=== PATIENT | male | born 1960 | race Caucasian/White ===

== ENCOUNTER → 2020-05-21 | Outpatient (CLI) | payer MEDICARE, OTHER ==
[~2020-05-21] VITALS: Ht 175.3 cm; Wt 109.1 kg
[2020-05-21] VITALS (9 sets, daily range): BP systolic 116–137; BP diastolic 60–74
[~2020-05-21] MED LIST: AMARYL2 MG PO; ASPIR 8181 MG PO; B12INJ IM; BRILINTA90 MG PO; COENZYME Q10100 MG PO; COQ-10100 MG PO; FISH OIL 1,001000 M2 PO; GABAPENTIN 100100 MG PO; LOPRESSOR25 PO; MAGOX 400400 MG PO; METFORMIN HCL500 MG PO; OMEGA-3 FISH1200 MG PO; OXYBUTYNIN 5 MG5 M2; PLAVIX 75 MG TA75 M1 PO; PRAVACHOL20 MG PO; VITAMIN D31250 MC1; VITAMIN D3400 UNIT PO
[2020-05-21 09:04] LABS: HEMATOCRIT 38.4 % (42.0-52.0); HEMOGLOBIN 13.3 gm/dL (14.0-18.0); MCH 30.8 pg (26.0-34.0); MCHC 34.8 g/dL (28.0-37.0); MCV 88.5 fL (80.0-100.0); MPV 8.2 fl. (7.2-11.1); RBC 4.34 mil/uL (4.50-6.00); RDW-CV 13.5 % (10.5-14.5); WBC 6.8 thou/uL (4.0-11.0)
[2020-05-21 09:14] LABS: ANION GAP 10 mmol/L (7-16); BUN 17 mg/dL (7-18); CHLORIDE 103 mmol/L (98-107); CO2 25 mmol/L (21-32); CREATININE 0.7 mg/dL (0.6-1.3); GLUCOSE 264 mg/dL (70-99); POTASSIUM 3.8 mmol/L (3.5-5.1); SODIUM 138 mmol/L (136-145)
[2020-05-21 09:16] LABS: APTT 25.7 Seconds (25.0-31.3)
[2020-05-21 09:18] LABS: ALBUMIN 3.2 g/dL (3.4-5.0); ALKALINE PHOSPHATASE 46 U/L (46-116); CHOLESTEROL 156 mg/dL (<200); HDL CHOLESTEROL 31 mg/dL (>40); SGOT 13 U/L (15-37); SGPT 25 U/L (30-65); TOTAL BILIRUBIN 0.3 mg/dL (<0.1-1.0); TOTAL PROTEIN 6.6 g/dL (6.4-8.2); TRIGLYCERIDE 414 mg/dL (<150); VLDL 83 mg/dL (<40)
[2020-05-21 09:20] LABS: LDL CHOLESTEROL ND mg/dL (<100)
[2020-05-21 09:33] LABS: SERUM ASSESSMENT Clear
--- NOTE | 2020-05-21 14:51 | CARD ---
[address] [address] CARDIAC CATH REPORT Name: GABBY REAL Room: [facility] Omkar#: [id number] Admission: 05/21/20 Attend Phys: Star Perez MD, Discharge: Date of : 58 Report #: [id number] THIS REPORT FOR: //name// cc: Eileen Roper Angela Jo RNP ~ APPROVED REPORT Study performed: 05/21/2020 09:03:25 Patient Details Patient Status: Out-Patient Room #: The patient is a 60 year-old male Event Personnel Star Perez Appliance Painter And Refinisher, oDm Justice RN RN, Omar Paulino Kramer, Jessie RTR Monitor Procedures Performed Art Access - R femoral artery Left Heart Cath w/or w/o Coronaries Hemostasis w/ Mynx Indication Positive stress test Risk Factors Obesity, Hypercholesterolemia, Hypertension, Diabetes Previous Procedures/Diagnoses Previous PCI Procedure Narrative The patient was brought electively to the Cardiac Catheterization Laboratory and was prepped and draped in a sterile manner. The right femoral was infiltrated with 2% Lidocaine subcutaneous anesthesia. A [place] 6 FR sheath was inserted into the right femoral artery. Coronary angiography was performed using coronary diagnostic catheters. The right coronary system was accessed and visualized with a Diagnostic 6 Fr 3 DRC catheter. The left coronary system was accessed and visualized with a Diagnostic 6 Fr JL 4 catheter. The left ventricle was accessed and visualized with a Diagnostic 6 Fr Pigtail catheter. Left ventricular/Aortic Valve gradient assessed via catheter pullback. Left ventriculogram was performed in CESPEDES projection. Pre-demployment femoral angiogram was performed . Closure device was deployed with a Fr Mynx 6Fr/7Fr. The patient tolerated the procedure well and there [place] [address] CARDIAC CATH REPORT Name: GABBY REAL Room: [facility]#: [id number] Admission: 05/21/20 Attend Phys: Star Perez MD, Discharge: Date of : 58 Report #: [id number] procedure. There was no hematoma. Intraoperative Conscious Sedation No sedation was given. Case start time was 10:10 and case end time was 10:35. 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 The left ventricular ejection fraction is estimated to be 55-60%. Left ventricular wall motion abnormalities are present. There is no mitral insufficiency. Mild inferobasilar hypokinesis is noted Hemodynamics The aortic pressure is 153/72 mmHg with a mean of 105 mmHg. The left ventricular pressure is 151/6 mmHg with a mean of mmHg. The left ventricular end diastolic pressure is 20 mmHg. There was no gradient across the aortic valve upon pullback. Conclusion 1. Significant multivessel coronary artery disease characterized by the following: A 30% distal left main coronary artery narrowing B 70% tubular proximalmid LAD stenosis with 70% proximal first diagonal narrowing C 50% proximal and distal circumflex narrowing with 50% [place] [address] CARDIAC CATH REPORT Name: GABBY REAL Room: [facility]#: [id number] Admission: 05/21/20 Attend Phys: Star Perez MD, Discharge: Date of : 58 Report #: [id number] D chronic total occlusion of the mid right coronary artery with [id number] collaterals filling the posterior descending branch of the right coronary artery through the septum with faint antegrade filling of the distal right coronary artery via bridging collaterals 2. Low normal global left ventricular systolic function, estimated ejection fraction being 55% with mild inferobasilar hypokinesis 3. Moderate elevation of left ventricular end-diastolic pressure at rest Recommendations Cardiac Risk Reduction Program Aggressive Medical Therapy CABG Diagnostic Cath Approved by: Star Perez MD Date/Time: 05/21/2020 14:48:40 <ELECTRONICALLY SIGNED> By: Star Perez MD, [facility] 05/21/20 145 50 145Star Perez MD, FAC /INF
--- NOTE | 2020-05-21 15:41 | EKG ---
[place] [address] ELECTROCARDIOGRAM REPORT Name: GABBY REAL Room: [facility]#: [id number] Admission: 05/21/20 Attend Phys: Iraida Jaimes Discharge: Date of : 58 Date of Service: 05/21/20 0858 Report #: [id number] THIS REPORT FOR: //name// [facility] Test Date: 2020-05-21 Test Time: 08:58:43 Pat Name: GABBY REAL Department: Room: Gender: Claims Examiner: ORLIN : 1960 Requested By: Star Perez Order Number: [id number] Alba MD: Star Perez Measurements Intervals [place] Rate: 57 P: 32 MI: 195 QRS: -8 QRSD: 102 T: 3 QT: 435 QTc: 424 Interpretive Statements Sinus rhythm Inferior infarct, old possible Compared to ECG 09/04/2017 03:04:28 No significant changes Electronically Signed On 05-21-2020 15:40:57 CDT by Star Perez [email or web address] <ELECTRONICALLY SIGNED> By: Star Perez MD, [facility] 05/21/20 1540 0858 0858 Star Perez MD, [facility] /EPI
--- NOTE | 2020-05-24 12:40 | H ---
[place] [address] HISTORY AND PHYSICAL Name: ALEXSANDRA REALLIE Pauline Room: [facility]#: [id number] Admission: 05/21/20 Attend Phys: Star Perez MD, Discharge: Date of : 58 Report #: [id number] THIS REPORT FOR: //name// cc: Eileen Roper Angela Jo RNP ~ THIS REPORT FOR: //name// CC: Eileen Perez DATE OF SERVICE: 05/21/2020 The patient admitted for cardiac catheterization on 05/21/2020. HISTORY OF PRESENT ILLNESS: The patient is a very pleasant 60-year-old male with a history of coronary artery disease, status post complex PCI of the right coronary artery many years ago and prior CVA. Of late, he has noted dyspnea on exertion, but denies chest discomfort or arm discomfort. There is underlying hypertension, diabetes, hyperlipidemia and weight excess. Confluent cardiac regimen includes aspirin 81 mg b.i.d., Coenzyme Q, cyanocobalamin, gabapentin 200 mg nightly, glimepiride 2 mg b.i.d., magnesium supplement, metformin 1000 mg b.i.d., metoprolol tartrate 25 mg b.i.d., fish oil, pravastatin 20 mg daily and vitamin D3. PAST MEDICAL HISTORY: Remarkable for diabetes, hypertension, hypercholesterolemia, and weight excess. SOCIAL HISTORY: He is . He does not smoke. REVIEW OF SYSTEMS: Remarkable for the following positives. GENERAL: There has been a chronic weight excess. MUSCULOSKELETAL: He notes mild arthritic complaints. NEUROLOGIC: He has symptoms compatible with peripheral neuropathy. Remainder is unremarkable. PHYSICAL EXAMINATION: GENERAL: Reveals a moderately overweight middle-aged male. VITAL SIGNS: Blood pressure is 140/82, pulse rate is 74, respirations are 18 per minute. NECK: Jugular venous pressure is normal. CHEST: Clear. CARDIAC: Reveals normal first and second heart sounds with an S4 gallop. ABDOMEN: Moderately obese. EXTREMITIES: Without edema with intact femoral, pedal [place] [address] HISTORY AND PHYSICAL Name: GABBY REAL Room: [facility]#: [id number] Admission: 05/21/20 Attend Phys: Star Perez MD, Discharge: Date of : 58 Report #: [id number] Recent nuclear stress test revealed inducible inferior ischemia. IMPRESSION: 1. Complex coronary artery disease, status post percutaneous coronary intervention of the right coronary artery. 2. Recently abnormal nuclear stress test. 3. Type 2 diabetes. 4. Prior pontine cerebrovascular accident. 5. Hyperlipidemia. 6. Hypertension. 7. Weight excess. RECOMMENDATIONS: Given the aforementioned confluence of known coronary artery disease, dyspnea on exertion and abnormal nuclear stress test and the risk factor profile, I would recommend proceeding with cardiac catheterization, which is to be undertaken on 05/21/2020. Procedure and risks have been discussed with the patient. <ELECTRONICALLY SIGNED> By: Star Perez MD, FACC 05/24/20 1240 1551 1558Star Perez MD, FACC /nt
== END | disposition home or self-care (01) ==
LOC: M.CL 08:28
PROVIDERS: ATTEND Internal Medicine
DX: R94.39 Abnormal result of other cardiovascular function study (principal); I25.10 Atherosclerotic heart disease of native coronary artery without angina pectoris; I25.82 Chronic total occlusion of coronary artery; I10 Essential (primary) hypertension; E78.00 Pure hypercholesterolemia, unspecified; E11.9 Type 2 diabetes mellitus without complications; G47.30 Sleep apnea, unspecified; E66.09 Other obesity due to excess calories; Z98.890 Other specified postprocedural states; Z79.899 Other long term (current) drug therapy; Z86.73 Personal history of transient ischemic attack (TIA), and cerebral infarction without residual deficits; Z79.01 Long term (current) use of anticoagulants